=== PATIENT | female | born 1960 | race Hispanic/Latino ===

== ENCOUNTER 2018-01-16 08:17 | Emergency (ER) | payer MEDICAID ==
[2018-01-16] MEDS ORDERED: IOPAMIDOL-370 100 ML VIAL IV ONE (08:54)
[2018-01-16 09:05] LABS: BASOPHILS % (AUTO) 0.3 % (0.0-5.0); HEMATOCRIT 35.8 % (36-48); LYMPHOCYTES % (AUTO) 35.3 % (21.0-51.0); MEAN CORPUSCULAR HEMOGLOBIN 30.6 pg (27.0-33.0); MEAN CORPUSCULAR HGB CONC 35.1 g/dL (32.0-36.0); MEAN CORPUSCULAR VOLUME 87.2 fL (79-99); MONOCYTES % (AUTO) 7.1 % (3.0-13.0); NEUTROPHILS % (AUTO) 57.3 % (40.0-77.0); NUCLEATED RED BLOOD CELLS 0.2 % (0.0-0.19); PLATELET COUNT (AUTO) 301 K/uL (130-400); RED CELL DISTRIBUTION WIDTH 13.8 % (11.0-15.5)
[2018-01-16 09:12] LABS: CARBON DIOXIDE 30 mmol/L (21-32); CHLORIDE 105 mmol/L (101-111); CREATININE 0.9 mg/dL (0.5-1.5); GLOMERULAR FILTR. RATE CALC 69 mL/min (>60); GLUCOSE,RANDOM 116 mg/dL (70-105); SODIUM SERUM 142 mmol/L (136-145); UREA NITROGEN, BLOOD 14 mg/dL (7-18)
[2018-01-16 09:17] LABS: ALANINE AMINOTRANSFERASE 37 U/L (12-78); ALBUMIN 3.5 g/dL (3.5-5.0); ALCOHOL, BLOOD < 3 mg/dL (0-10); ASPARTATE AMINOTRANSFERASE 23 U/L (10-37); BILIRUBIN,TOTAL 0.2 mg/dL (0.2-1.0); TOTAL PROTEIN, SERUM 7.4 g/dL (6.0-8.3)
[2018-01-16 10:36] LABS: APPEARANCE,URINE Cloudy (CLEAR); BILIRUBIN,URINE Negative (NEGATIVE); COLOR,URINE Yellow (YELLOW); GLUCOSE, URINE (UA) Negative (NEGATIVE); KETONES,URINE Negative (NEGATIVE); LEUKOCYTE ESTERASE ,URINE Large (NEGATIVE); NITRATE,URINE Negative (NEGATIVE); OCCULT BLOOD,URINE Trace (NEGATIVE); PH,URINE 7.5 (5.0-8.0); PROTEIN,URINE Negative (NEGATIVE); UROBILINOGEN,URINE 0.2 mg/dL (0.2-1.0)
[2018-01-16] MEDS ORDERED: MORPHINE SULFATE 4 MG/1ML SYG ONE (10:38)
[2018-01-16] MEDS ORDERED: ONDANSETRON HCL MDV 20ML 2 MG/ML VIAL ONE (10:38)
[2018-01-16 11:01] LABS: BACTERIA,URINE Few /HPF (None Seen); RBC,URINE 0-1 /HPF (0-1)
[2018-01-16 11:32] LABS: AMPHET/METH SCREEN,URINE NEGATIVE (NEGATIVE); BARBITURATE SCREEN, URINE NEGATIVE (NEGATIVE); BENZODIAZEPINES SCREEN,URINE NEGATIVE (NEGATIVE); CANNABINOID SCREEN,URINE NEGATIVE (NEGATIVE); COCAINE SCREEN,URINE NEGATIVE (NEGATIVE); OPIATE SCREEN,URINE NEGATIVE (NEGATIVE); PHENCYCLIDINE SCREEN,URINE NEGATIVE (NEGATIVE)
== END 2018-01-16 12:12 | disposition home or self-care (01) ==
LOC: EDH 08:17
DX: S13.4XXA Sprain of ligaments of cervical spine, initial encounter (principal); S23.3XXA Sprain of ligaments of thoracic spine, initial encounter; S80.01XA Contusion of right knee, initial encounter; S40.011A Contusion of right shoulder, initial encounter; S20.212A Contusion of left front wall of thorax, initial encounter; E07.9 Disorder of thyroid, unspecified; K21.9 Gastro-esophageal reflux disease without esophagitis; E78.5 Hyperlipidemia, unspecified; Z87.891 Personal history of nicotine dependence; V79.49XA Driver of bus injured in collision with other motor vehicles in traffic accident, initial encounter; Y93.89 Activity, other specified; Y92.89 Other specified places as the place of occurrence of the external cause; Y99.8 Other external cause status
CPT/HCPCS: 36415; 70450; 71260; 72125; 73030; 73562; 74177; 80053; 80305; 81001; 85025; 93005; 96374; 96375; 99285; G0480; J2270; Q9967

== ENCOUNTER → 2018-09-29 | Outpatient (CLI) | payer MEDICAID | END | disposition home or self-care (01) | LOC: RAH 10:33 | PROVIDERS: ATTEND Internal Medicine Gastroenterology | DX: R10.10 Upper abdominal pain, unspecified (principal); R11.2 Nausea with vomiting, unspecified; R14.0 Abdominal distension (gaseous) | CPT/HCPCS: 78264; A9541 ==

== ENCOUNTER → 2019-06-22 | Outpatient (CLI) | payer MEDICARE ==
--- NOTE | 2019-06-22 11:00 | NUR ---
MBSS COMPLETED. -S/S OF ASPIRATION. RECOMMEND REGULAR TEXTURE, THIN LIQUIDS; PILLS WHOLE WITH LIQUIDS. Addendum: 06/23/19 at 0906 by VICKY RIDLEY, [facility] Amended: Links added.
== END | disposition home or self-care (01) ==
LOC: RAH 10:46
PROVIDERS: ATTEND Internal Medicine Gastroenterology
DX: R13.12 Dysphagia, oropharyngeal phase (principal); R63.3 Feeding difficulties
CPT/HCPCS: 74230; 92611

== ENCOUNTER 2019-09-23 17:49 | Emergency (ER) | payer MEDICARE ==
[2019-09-23] MEDS ORDERED: MORPHINE SULFATE 4 MG/1ML SYG ONE (18:47)
[2019-09-23 19:06] LABS: APPEARANCE,URINE Clear (CLEAR); BILIRUBIN,URINE Negative (NEGATIVE); COLOR,URINE Yellow (YELLOW); GLUCOSE, URINE (UA) Negative (NEGATIVE); KETONES,URINE Negative (NEGATIVE); LEUKOCYTE ESTERASE ,URINE Large (NEGATIVE); NITRATE,URINE Negative (NEGATIVE); OCCULT BLOOD,URINE Trace (NEGATIVE); PH,URINE 5.5 (5.0-8.0); PROTEIN,URINE Negative (NEGATIVE)
[2019-09-23 19:32] LABS: BACTERIA,URINE Rare /HPF (None Seen); RBC,URINE 0-1 /HPF (0-1); SQUAMOUS EPITHELIAL CELL,UR Few /HPF (0-2); WBC,URINE 51-100 /HPF (0-1)
[2019-09-23] MEDS ORDERED: CEFTRIAXONE SODIUM 1 GM ONE (20:21)
[2019-09-23] MEDS ORDERED: LIDOCAINE HCL-MPF 1% 2ML VIAL ONE (20:21)
[2019-09-23] MEDS ORDERED: HYDROMORPHONE 1 MG/1 ML AMP ONE (20:21)
== END 2019-09-23 21:01 | disposition home or self-care (01) ==
LOC: EDH 17:49
DX: N39.0 Urinary tract infection, site not specified (principal); M54.5 Low back pain; F41.9 Anxiety disorder, unspecified; F32.9 Major depressive disorder, single episode, unspecified; K21.9 Gastro-esophageal reflux disease without esophagitis; E78.5 Hyperlipidemia, unspecified; Z87.891 Personal history of nicotine dependence
CPT/HCPCS: 51701; 81001; 87088; 96372 ×3; 99284; J0696; J1170; J2270; J3490

== ENCOUNTER → 2021-02-07 | Outpatient (CLI) | payer MEDICARE | END | disposition home or self-care (01) | LOC: SHCH 15:34 | PROVIDERS: ATTEND Internal Medicine Cardiovascular Disease | DX: I34.0 Nonrheumatic mitral (valve) insufficiency (principal); R00.2 Palpitations; I10 Essential (primary) hypertension; E66.9 Obesity, unspecified; R55 Syncope and collapse | CPT/HCPCS: 93306; 93356 ==

== ENCOUNTER → 2021-02-08 | Outpatient (CLI) | payer MEDICARE ==
[~2021-02-08] VITALS: Ht 167.6 cm; Wt 108.9 kg
[~2021-02-08] MED LIST: REGADENOSON 0.4 MG/5 ML PF SYG IVP SCH
== END | disposition home or self-care (01) ==
LOC: SHCH 08:18
PROVIDERS: ATTEND Internal Medicine Cardiovascular Disease
DX: R07.9 Chest pain, unspecified (principal); R00.2 Palpitations
CPT/HCPCS: 78452; 93017; 96374; A9500 ×2; J2785

== ENCOUNTER 2021-04-04 07:11 | Day surgery (SDC) | payer MEDICARE ==
[2021-04-03 12:34] LABS: BASOPHILS % (AUTO) 0.4 % (0.0-5.0); HEMATOCRIT 40.2 % (36-48); LYMPHOCYTES % (AUTO) 38.1 % (21.0-51.0); MEAN CORPUSCULAR HEMOGLOBIN 29.2 pg (27.0-33.0); MEAN CORPUSCULAR HGB CONC 31.8 g/dL (32.0-36.0); MEAN CORPUSCULAR VOLUME 91.6 fL (79-99); MONOCYTES % (AUTO) 7.2 % (3.0-13.0); NEUTROPHILS % (AUTO) 53.5 % (40.0-77.0); PLATELET COUNT (AUTO) 303 K/uL (130-400); RED BLOOD CELL COUNT(AUTO) 4.39 MIL/uL (4.00-5.50); RED CELL DISTRIBUTION WIDTH 13.3 % (11.0-15.5); WHITE BLOOD COUNT (AUTO) 7.2 K/uL (4.8-10.8)
[2021-04-03 12:42] LABS: CREATININE 0.8 mg/dL (0.5-1.5); POTASSIUM 4.1 mmol/L (3.5-5.1)
[2021-04-03 12:46] LABS: INR 0.97 (0.85-1.15); PROTHROMBIN TIME 10.6 SEC (9.6-11.6)
[2021-04-03 12:53] LABS: APPEARANCE,URINE Clear (CLEAR); BILIRUBIN,URINE Negative (NEGATIVE); COLOR,URINE Yellow (YELLOW); GLUCOSE, URINE (UA) Negative (NEGATIVE); KETONES,URINE Negative (NEGATIVE); LEUKOCYTE ESTERASE ,URINE Small (NEGATIVE); NITRATE,URINE Negative (NEGATIVE); OCCULT BLOOD,URINE Negative (NEGATIVE); PROTEIN,URINE Negative (NEGATIVE)
[2021-04-03 13:01] VITALS: BP 146/76
[2021-04-03 13:22] LABS: BACTERIA,URINE Rare /HPF (None Seen); RBC,URINE 0-1 /HPF (0-1); SQUAMOUS EPITHELIAL CELL,UR Rare /HPF (0-2); WBC,URINE 0-1 /HPF (0-1)
[~2021-04-04] VITALS: Ht 167.6 cm; Wt 112.0 kg
[2021-04-04] VITALS (10 sets, daily range): BP systolic 96–134; BP diastolic 46–72
[~2021-04-04 07:11] MED LIST changes: +0.9% NACL 500ML IV.SOLN 500 ML IV SCH; -REGADENOSON 0.4 MG/5 ML PF SYG IVP SCH
[2021-04-04] MEDS ORDERED: 0.9%NACL 1000ML 1,000 ML IV ONE (07:35)
[2021-04-04] MEDS ORDERED: AMOX1TAB16 PO (07:55)
[2021-04-04] MEDS ORDERED: ERGO500093 PO (07:55)
[2021-04-04] MEDS ORDERED: BACL10TA PO (07:55)
[2021-04-04] MEDS ORDERED: METO5TAB2 PO (07:55)
[2021-04-04] MEDS ORDERED: FAMO40TA7 PO (07:55)
[2021-04-04] MEDS ORDERED: buspar PO (07:55)
[2021-04-04] MEDS ORDERED: LOSA25TA41 PO (07:55)
[2021-04-04] MEDS ORDERED: PROM25TA7 PO (07:55)
[2021-04-04] MEDS ORDERED: ACYC400T20 PO (07:55)
[2021-04-04] MEDS ORDERED: RABE20TA30 PO (07:55)
[2021-04-04] MEDS ORDERED: BUSP30TA2 PO (08:00)
[2021-04-04] MEDS ORDERED: BUSPIRONE HCL PO (08:15)
[2021-04-04] MEDS ORDERED: ALBU0.63 IH (08:15)
[2021-04-04] MEDS ORDERED: FENTANYL CITRATE PF 50 MCG/1 ML 2ML VIAL ONE (08:37)
[2021-04-04] MEDS ORDERED: SODIUM BICARB 50MEQ 50ML VIAL 50 ML ONE (08:37)
[2021-04-04] MEDS ORDERED: IOHEXOL-350 50ML VIAL IV ONE ×2 (08:37→12:29)
[2021-04-04] MEDS ORDERED: IOHEXOL 350 MG/ML 100ML INFUS..BTL IV ONE (08:37)
[2021-04-04] MEDS ORDERED: MIDAZOLAM HCL 1 MG/ML 2ML VIAL ONE (08:37)
[2021-04-04] MEDS ORDERED: HEPARIN 10,000 UNIT/10ML (1,000 UNIT/ML) VIAL ONE (08:37)
[2021-04-04] MEDS ORDERED: LIDOCAINE HCL 400MG/20ML VIAL ONE (08:38)
[2021-04-04] MEDS ORDERED: NICARDIPINE 25MG INJ IV ONE (09:49)
[2021-04-04] MEDS ORDERED: NITROGLYCERIN 2 MG VIAL IV ONE (10:37)
[2021-04-04] MEDS ORDERED: 0.9%NACL 1000ML 1,000 ML IV SCH (13:00)
[2021-04-04] MEDS ORDERED: ACETAMINOPHEN 325 MG TAB ONE (13:43)
[2021-04-04] MEDS ORDERED: ACETAMINOPHEN 325 MG TAB PO ONE (14:00)
== END 2021-04-04 17:10 | disposition home or self-care (01) ==
LOC: DAH 07:11
PROVIDERS: ATTEND Internal Medicine Cardiovascular Disease
DX: R94.39 Abnormal result of other cardiovascular function study (principal); I20.9 Angina pectoris, unspecified; R06.09 Other forms of dyspnea; I10 Essential (primary) hypertension; E78.5 Hyperlipidemia, unspecified; J45.909 Unspecified asthma, uncomplicated; F32.9 Major depressive disorder, single episode, unspecified; F41.1 Generalized anxiety disorder; R73.03 Prediabetes; G47.33 Obstructive sleep apnea (adult) (pediatric); Z98.890 Other specified postprocedural states; Z90.710 Acquired absence of both cervix and uterus; Z82.49 Family history of ischemic heart disease and other diseases of the circulatory system; Z79.899 Other long term (current) drug therapy; Z79.01 Long term (current) use of anticoagulants
CPT/HCPCS: 36415; 71045; 80048; 81001; 82948; 85025; 85610; 85730; 93005; 93458; A4215; A4216; A4221; A4222; A4223 ×3; A4606; A4663; A6260; C1760; C1769; C1894 ×4; J1644 ×2; J2250; J3010; J3490 ×4; J7030; Q9965; Q9967 ×2; 99156; 99157

== ENCOUNTER 2022-02-06 05:30 | Observation (INO) | payer OTHER, MEDICARE ==
[2022-02-05 16:38] VITALS: BP 136/72
[2022-02-05 17:03] LABS: BASOPHILS % (AUTO) 0.5 % (0.0-5.0); EOSINOPHILS % (AUTO) 0.2 % (0.0-8.0); HEMATOCRIT 39.8 % (36-48); LYMPHOCYTES % (AUTO) 38.3 % (21.0-51.0); MEAN CORPUSCULAR HEMOGLOBIN 29.3 pg (27.0-33.0); MEAN CORPUSCULAR HGB CONC 32.7 g/dL (32.0-36.0); MEAN CORPUSCULAR VOLUME 89.8 fL (79-99); MONOCYTES % (AUTO) 7.4 % (3.0-13.0); PLATELET COUNT (AUTO) 336 K/uL (130-400); RED BLOOD CELL COUNT(AUTO) 4.43 MIL/uL (4.00-5.50); RED CELL DISTRIBUTION WIDTH 13.6 % (11.0-15.5); WHITE BLOOD COUNT (AUTO) 8.8 K/uL (4.8-10.8)
[2022-02-05 17:04] LABS: APPEARANCE,URINE Clear (CLEAR); BILIRUBIN,URINE Negative (NEGATIVE); COLOR,URINE Yellow (YELLOW); GLUCOSE, URINE (UA) Negative (NEGATIVE); KETONES,URINE Negative (NEGATIVE); LEUKOCYTE ESTERASE ,URINE Moderate (NEGATIVE); NITRATE,URINE Negative (NEGATIVE); OCCULT BLOOD,URINE Negative (NEGATIVE); PH,URINE 5.5 (5.0-8.0); PROTEIN,URINE Negative (NEGATIVE)
[2022-02-05 17:09] LABS: CREATININE 0.9 mg/dL (0.5-1.5); POTASSIUM 4.2 mmol/L (3.5-5.1)
[2022-02-05 17:13] LABS: INR 0.93 (0.85-1.15); PROTHROMBIN TIME 9.7 SEC (9.6-11.6)
[2022-02-05 17:14] LABS: PARTIAL THROMBOPLASTIN TIME 24.4 SEC (26.3-35.5)
[2022-02-05 17:42] LABS: BACTERIA,URINE Few /HPF (None Seen); RBC,URINE 0-1 /HPF (0-1)
[2022-02-06] VITALS (27 sets, daily range): BP systolic 112–148; BP diastolic 50–79
[~2022-02-06] VITALS: Ht 167.6 cm; Wt 111.5 kg
[~2022-02-06 05:30] MED LIST changes: -0.9% NACL 500ML IV.SOLN 500 ML IV SCH; +BUSPIRONE HCL PO; +CEFAZOLIN SODIUM 3 GM VIAL IV ONE; +DEXL60CA3 PO; +FLUT1BLS3 IH; +LAMO5TB.3 PO; +LORA0.5T83 PO; +LORA10TA7 PO; +LOSA25TA41 PO; +METO5TAB2 PO; +PRED10TA3 PO; +SUCRALFATE PO
[2022-02-06] MEDS ORDERED: CEFAZOLIN SODIUM 1 GM VIAL ONE ×2 (05:47→06:19)
[2022-02-06] MEDS ORDERED: 0.9%NACL 1000ML 1,000 ML IV ONE (05:47)
[2022-02-06] MEDS ORDERED: CEFAZOLIN SODIUM 3 GM in DEXTROSE 5%-WATER 100 ML IVP SCH (06:00)
[2022-02-06] MEDS ORDERED: CEFAZOLIN SODIUM 1 GM VIAL IVP SCH (06:00)
[2022-02-06] MEDS ORDERED: ONDANSETRON 4MG INJ ONE (06:47)
[2022-02-06] MEDS ORDERED: ROCURONIUM 10MG/1ML SYR 10 MG/ML ML ONE (06:48)
[2022-02-06] MEDS ORDERED: PROPOFOL 10 MG/ML 20ML VIAL IV ONE (06:48)
[2022-02-06] MEDS ORDERED: GLYCOPYRROLATE 1 MG/5 ML SYRINGE ONE (06:48)
[2022-02-06] MEDS ORDERED: FENTANYL CITRATE PF 50 MCG/1 ML 2ML VIAL ONE ×2 (06:48→08:10)
[2022-02-06] MEDS ORDERED: NEOSTIGMINE 5MG/5ML SYR IV ONE (06:48)
[2022-02-06] MEDS ORDERED: CEFAZOLIN SODIUM 3 GM VIAL IV ONE (06:50)
[2022-02-06] MEDS ORDERED: FAMOTIDINE 20MG VIAL IV ONE (06:53)
[2022-02-06] MEDS ORDERED: MEPERIDINE-PF 25 MG/ML SYG ONE (07:51)
[2022-02-06] MEDS ORDERED: HYDROMORPHONE 1 MG INJ ONE ×2 (08:11→08:32)
[2022-02-06] MEDS ORDERED: BISACODYL 10 MG SUPP.RECT RC PRN (10:00)
[2022-02-06] MEDS ORDERED: IBUPROFEN 600 MG TABLET PO PRN (10:00)
[2022-02-06] MEDS ORDERED: ONDANSETRON 4MG INJ IVP PRN (10:00)
[2022-02-06] MEDS ORDERED: PROMETHAZINE HCL 25 MG/ML 1ML AMPULE IM PRN (10:00)
[2022-02-06] MEDS: PROMETHAZINE HCL 25 MG/ML 1ML AMPULE IM PRN ×3 (10:09→19:37)
[2022-02-06] MEDS: MEPERIDINE-PF 75 MG/ML SYG IM PRN ×3 (10:09→19:39)
[2022-02-06] MEDS: INSULIN HUMULIN R 100 UNIT/ML 3ML SQ SCH ×3 (11:30→21:00)
[2022-02-06] MEDS: LACTATED RINGERS 1000ML 1,000 ML IV SCH ×2 (13:24→23:18)
[2022-02-06] MEDS: ACETAMINOPHEN WITH CODEINE 1 TAB TAB PO PRN (13:28)
[2022-02-06] MEDS: SIMETHICONE 80 MG TAB.CHEW PO PRN (21:34)
[2022-02-06] MEDS: DOCUSATE SODIUM 100 MG CAP PO PRN (21:35)
[2022-02-07 02:36] VITALS: BP 114/71
[2022-02-07] MEDS: PROMETHAZINE HCL 25 MG/ML 1ML AMPULE IM PRN (03:00)
[2022-02-07] MEDS: MEPERIDINE-PF 75 MG/ML SYG IM PRN (03:00)
[2022-02-07 05:52] LABS: HEMATOCRIT 32.9 % (36-48); MEAN CORPUSCULAR HEMOGLOBIN 29.1 pg (27.0-33.0); MEAN CORPUSCULAR HGB CONC 31.9 g/dL (32.0-36.0); MEAN CORPUSCULAR VOLUME 91.1 fL (79-99); RED BLOOD CELL COUNT(AUTO) 3.61 MIL/uL (4.00-5.50); RED CELL DISTRIBUTION WIDTH 13.6 % (11.0-15.5); WHITE BLOOD COUNT (AUTO) 10.2 K/uL (4.8-10.8)
[2022-02-07] MEDS: INSULIN HUMULIN R 100 UNIT/ML 3ML SQ SCH (07:30)
[2022-02-07 07:35] VITALS: BP 116/64
[2022-02-07] MEDS: LACTATED RINGERS 1000ML 1,000 ML IV SCH (07:41)
[2022-02-07] MEDS ORDERED: PHARMACY COMMUNICATION MISC SCH (08:30)
[2022-02-07] MEDS ORDERED: LEVOFLOXACIN 500 MG TABLET PO SCH (08:39)
[2022-02-07] MEDS: SIMETHICONE 80 MG TAB.CHEW PO PRN (09:27)
[2022-02-07] MEDS: DOCUSATE SODIUM 100 MG CAP PO PRN (09:27)
[2022-02-07] MEDS: ACETAMINOPHEN WITH CODEINE 1 TAB TAB PO PRN (09:28)
[2022-02-07 11:22] VITALS: BP 99/57
[2022-02-07] MEDS ORDERED: ACET-2079 PO (12:06)
[2022-02-07] MEDS ORDERED: DOCU-116 PO (12:07)
[2022-02-07] MEDS ORDERED: FERR325T22 PO (12:07)
[2022-02-07] MEDS ORDERED: SULF1TAB42 PO (12:07)
== END 2022-02-07 13:25 | disposition home or self-care (01) ==
LOC: DAH 05:30 → OBSVTOIN 05:31 → DAHIP 05:31 → INTOOBSV 05:31 → WSH 09:15
PROVIDERS: ADMIT Obstetrics & Gynecology; ATTEND Obstetrics & Gynecology
DX: N81.6 Rectocele (principal); Z20.822 Contact with and (suspected) exposure to COVID-19; N81.5 Vaginal enterocele; N81.10 Cystocele, unspecified; N39.41 Urge incontinence; J45.909 Unspecified asthma, uncomplicated; M06.9 Rheumatoid arthritis, unspecified; I10 Essential (primary) hypertension; K21.9 Gastro-esophageal reflux disease without esophagitis; Z79.899 Other long term (current) drug therapy
CPT/HCPCS: 36415 ×2; 57265; 80048; 81001; 82948 ×6; 85025; 85027; 85610; 85730; 86850; 86900; 86901; 87077; 87088; 87186; 87635; 96372 ×2; A4215; A4221; A4223; A4338; A4351 ×3; A4600; A4606; A4663; C9803; G0378 ×29; G0379; J0690 ×3; J1170 ×2; J2175 ×5; J2405; J2550 ×4; J2704; J2710; J3010 ×2; J3490 ×2; J7030 ×2; J7120 ×3